=== PATIENT | male | born 1995 | race Caucasian/White ===

== ENCOUNTER 2018-05-28 14:22 | Emergency (ER) | payer OTHER, SELFPAY ==
[2018-05-28 14:30] VITALS: BP 143/87; PULSE 80; RESP 16; TEMP 36.4; O2SAT 93
--- NOTE | 2018-05-28 14:38 | DI.RAD.S_ITS ---
PROCEDURE: XR FOOT LT MIN 3V INDICATIONS: foot injury TECHNIQUE: 3 views of the foot were acquired. COMPARISON: None. FINDINGS: Bones: There is a longitudinal lucency in the first distal phalanx, suspicious for nondisplaced fracture. The lucency appears to extend to the first interphalangeal joint. No suspicious bony lesions. Soft tissues: No tibiotalar joint effusion. Achilles tendon appears normal. Soft tissue swelling is noted. IMPRESSION: Nondisplaced fracture of the first distal phalanx with possible intra-articular involvement. Dictated by: Taryn Hoover M.D. on 05/28/2018 at 15:01 Approved by: Taryn Hoover M.D. on 05/28/2018 at 15:05
--- NOTE | 2018-05-28 15:18 | PC.NURSE ---
Dressing in place with gauze and coban to great toe from Clinic on [facility]. Bleedin controlled. States left great toe feels numb. CMS intacy and foot is warm with normal pulses.
--- NOTE | 2018-05-28 15:40 | ED.LOWEXIN ---
HPI - Extremity Injury (Lower) General Chief Complaint: Extremity Injury, Lower Stated Complaint: BUCKET CRUSHED LEFT FOOT, CANT FEEL TOES Time Seen by Provider: 05/28/18 15:28 Source: patient Mode of arrival: ambulatory Limitations: no limitations History of Present Illness HPI Narrative: Otherwise healthy 22-year-old male here for evaluation of a crush injury to his left foot. Patient was sent here after a excavator bucket hit his left foot earlier today while he was at work. Had pain immediately afterwards. States that since then he has had numbness and tingling to his foot. Also pain about his big toe. Has not tried anything for prior to arrival. No prior injury. Related Data Previous Rx's Medication Instructions Recorded cephalexin [Keflex] 500 mg PO Q12H 7 Days #14 cap 05/28/18 hydrocodone-acetaminophen [[place]] 1 tab PO Q4-6H PRN #10 tab 05/28/18 Allergies Allergy/AdvReac Type Severity Reaction Status Date / Time meperidine [From Demerol] Allergy Mild Hives Verified 05/28/18 14:37 Review of Systems Constitutional Denies fever(s) Cardiovascular Denies chest pain and Denies dyspnea Respiratory Denies dyspnea Gastrointestinal Gastrointestinal: Denies abdominal pain, Denies nausea and Denies vomiting Musculoskeletal Comments: Left foot numbness and tingling and pain to his back to Integumentary/Breasts Comments: Bleeding around his big toe no other breaks in the skin Neurologic Comments: Numbness and tingling to left foot PFSH Medical History Mitochondrial ataxia syndrome (Acute) Surgical History No pertinent past surgical history (Acute) Social History Smoking Status: Current every day smoker Exam Initial Vital Signs Initial Vital Signs: Vital Signs Temperature 97.6 F 05/28/18 14:30 Pulse Rate 80 05/28/18 14:30 Respiratory Rate 16 05/28/18 14:30 Blood Pressure 143/87 H 05/28/18 14:30 Pulse Oximetry 93 05/28/18 14:30 Const General: cooperative, healthy appearing, comfortable, well developed, well groomed and No acute distress Orientation: alert, awake and oriented x3 Resp Effort & Inspection: normal respiratory effort Cardio Pulses: dorsalis pedis present on the left Skin Other: Some dry blood around the left big toe nail otherwise no other breaks in the skin. Neuro Other: Patient reports decrease tenderness and tingling to his entire left foot Extrem General: capillary refill normal Other: No gross deformities. Tender around the left toe. Hand appears to have had a subungual hematoma of his left big toenail that has drained. Psych Appearance: grossly normal and well kempt Procedures Laceration Repair Laceration 1: Site: lower extremity Side (If applicable): left Size (cm): 0.25 Description: linear Depth: simple, single layer Local Anesthetic: lidocaine 1% Amount of anesthesia used (mL): 6 Pre-repair: irrigated extensively Skin layer closed with: other (Chromic) Size (cm): 5-0 Number of sutures: 1 Technique: simple, interrupted Course Orders Ordered: ED Orders 05/28/18 14:38 XR foot LT min 3V Stat Vital Signs - 8 hr 05/28/18 14:30 Temperature 97.6 F Pulse Rate 80 Respiratory Rate 16 Blood Pressure 143/87 H Pulse Oximetry 93 MDM - Extremity Injury (Lower) Imaging Data X-ray foot: Radiologist's impression: [place] [address] XRay Report Signed Patient: Eva Mejia#: [id number] : 1995Acct:[id number] Age/Sex: 22 / MDate of Service: 05/28/18 Loc: ED Accession Number: [id number] Procedure: XR foot LT min 3V Ordering Provider: Honorio Perry PROCEDURE: XR FOOT LT MIN 3V INDICATIONS: foot injury TECHNIQUE: 3 views of the foot were acquired. COMPARISON: None. FINDINGS: Bones: There is a longitudinal lucency in the first distal phalanx, suspicious for nondisplaced fracture. The lucency appears to extend to the first interphalangeal joint. No suspicious bony lesions. Soft tissues: No tibiotalar joint effusion. Achilles tendon appears normal. Soft tissue swelling is noted. IMPRESSION: Nondisplaced fracture of the first distal phalanx with possible intra-articular involvement. Dictated by: Taryn Hoover M.D. on 05/28/2018 at 15:01 Approved by: Taryn Hoover M.D. on 05/28/2018 at 15:05 [facility] Narrative Medical decision making narrative: Patient has subjective tingling to his left foot but no signs of compartment syndrome. No breaks in the skin. Secondary to the distal left big toe fracture and the appearance of will probably was a subungual hematoma that has drained the left big toenail was removed and there was a very small laceration to the nail bed. This was repaired with chromic after providing a digit block with lidocaine. Will send home with antibiotics secondary to the cut and the nail bed and the underlying fracture. I have low suspicion for neurologic injury. Patient was given care instructions. He was sent home with a hard sole shoe. He was given return precautions. He expressed understanding and agreement plan. Discharge Plan Departure Patient Disposition: Home Clinical Impression: Fracture of toe of right foot Discharge Date/Time: 05/28/18 16:52 Interventions: ED Discharge Assessment Last Done: 05/28/18 16:52 Instructions: DI for Toe Fracture Activity Restrictions/Additional Instructions: The stitch that was placed in your toe is absorbable and will come out on its own. Recommend that you leave the bandage on for the next 24 hr. After that you can take it off. You can shower like normal. Use soap and water like normal. Do not soak your foot in anything. Take the medications and the antibiotics as directed. Call your primary care doctor for a follow-up. Return to the emergency department for any new or worsening symptoms. Prescriptions: New hydrocodone-acetaminophen [[place]] 5-325 mg tablet 1 tab PO Q4-6H PRN (Reason: pain) Qty: 10 RF: 0 cephalexin [Keflex] 500 mg capsule 500 mg PO Q12H 7 Days Qty: 14 RF: 0
[2018-05-28 16:52] VITALS: BP 122/76; PULSE 72; RESP 18; O2SAT 100
== END 2018-05-28 16:52 | disposition home or self-care (01) ==
PROVIDERS: Emergency Provider Emergency Medicine; PCP Family Medicine
DX: S92.402A Displaced unspecified fracture of left great toe, initial encounter for closed fracture (principal); W22.8XXA Striking against or struck by other objects, initial encounter; Y99.0 Civilian activity done for income or pay
CPT/HCPCS: 12001; 29550; 73630; 99282; 99283

== ENCOUNTER 2018-05-31 14:20 | Emergency (ER) | payer OTHER, SELFPAY ==
[2018-05-31 14:37] VITALS: BP 125/73; PULSE 100; RESP 13; TEMP 36.9; O2SAT 98
--- NOTE | 2018-05-31 18:03 | ED.LOWEXIN ---
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 He was placed in a postop shoe and put on Keflex antibiotics. Laceration to the nail bed was closed and avulsed toenail was placed back into the nail margin. He denies any new trauma to the area. He does report increasing redness over the past couple of days. No fevers. No drainage from the area. Related Data Previous Rx's Medication Instructions Recorded cephalexin [Keflex] 500 mg PO Q12H 7 Days #14 cap 05/28/18 hydrocodone-acetaminophen [[place]] 1 tab PO Q4-6H PRN #10 tab 05/28/18 sulfamethoxazole-trimethoprim 1 tab PO BID 7 Days #14 tab 05/31/18 Allergies Allergy/AdvReac Type Severity Reaction Status Date / Time meperidine [From Demerol] Allergy Mild Hives Verified 05/28/18 14:37 Review of Systems <ROXY Araujo - Last Filed: 05/31/18 22:27> Constitutional Denies chills, Denies fever(s), Denies lethargy and Denies weakness Eyes Denies change in vision, Denies eye discharge, Denies irritation and Denies loss of vision ENT Ears, Nose, Mouth, and Throat: Denies change in voice, Denies neck pain and Denies sore throat Cardiovascular Denies chest pain, Denies irregular heart rhythm, Denies lightheadedness, Denies palpitations, Denies dyspnea, Denies dyspnea on exertion and Denies orthopnea Respiratory Denies cough, Denies dyspnea, Denies dyspnea on exertion and Denies wheezing Gastrointestinal Gastrointestinal: Denies abdominal pain, Denies change in bowel habits, Denies diarrhea, Denies nausea and Denies vomiting Genitourinary Denies hematuria, Denies flank pain, Denies urinary incontinence and Denies urinary urgency Musculoskeletal Denies neck pain Comments: Right great toe pain and redness Integumentary/Breasts Denies pruritus, Denies erythema, Denies rash and Denies wounds Neurologic Denies loss of vision and Denies weakness Endocrine Denies palpitations Hematologic/Lymphatic Denies easy bruising Allergic/Immunologic Denies wheezing Exam <ROXY Araujo - Last Filed: 05/31/18 22:27> Initial Vital Signs Initial Vital Signs: Vital Signs Temperature 98.5 F 05/31/18 14:37 Pulse Rate 100 H 05/31/18 14:37 Respiratory Rate 13 05/31/18 14:37 Blood Pressure 125/73 H 05/31/18 14:37 Pulse Oximetry 98 05/31/18 14:37 Const General: cooperative and well developed Nutritional Appearance: well nourished Orientation: alert, awake, oriented x3 and not confused HENMT Mouth: oral mucosae normal and moist mucous membranes Eyes General: appearance normal, both eyes and all related structures Conjunctivae: conjunctivae normal Sclera: sclerae normal Pupils: PERRL EOM: EOM intact bilaterally Resp Effort & Inspection: normal respiratory effort, able to speak in complete sentences, no respiratory distress and no use of accessory muscles Auscultation: clear to auscultation bilaterally, no rales, no rhonchi and no wheezes Cardio Rate: regular rate Rhythm: regular rhythm Heart Sounds: no click, no gallops, no murmurs and no rubs Pulses: normal peripheral pulses Skin General: no rashes or lesions noted, No jaundice and No petechiae Neuro General: alert, oriented x3, gait normal and no focal motor deficits Speech: speech normal Extrem Other: Right great toe with swelling and erythema. No fluctuance or induration. No open lesions seen. Distal sensation is intact. Distal cap refill less than 2 sec. <Chris Fagan DO - Last Filed: 06/01/18 01:46> Initial Vital Signs Initial Vital Signs: Vital Signs Temperature 98.5 F 05/31/18 14:37 Pulse Rate 100 H 05/31/18 14:37 Respiratory Rate 13 05/31/18 14:37 Blood Pressure 125/73 H 05/31/18 14:37 Pulse Oximetry 98 05/31/18 14:37 Course <ROXY Araujo - Last Filed: 05/31/18 22:27> Vital Signs - 8 hr 05/31/18 19:11 Pulse Rate 86 Respiratory Rate 16 Blood Pressure [Left Arm] 122/70 H Pulse Oximetry 100 <Chris Fagan DO - Last Filed: 06/01/18 01:46> Vital Signs - 8 hr 05/31/18 19:11 Pulse Rate 86 Respiratory Rate 16 Blood Pressure [Left Arm] 122/70 H Pulse Oximetry 100 MDM - Extremity Injury (Lower) <ROXY Araujo - Last Filed: 05/31/18 22:27> [facility] Narrative Medical decision making narrative: Two 2 subjective report of increased redness to the right great toe, will add Septra antibiotic to cover for MRSA. He is instructed follow up with primary care provider in the next couple of days for re-evaluation. Continue using ibuprofen for discomfort. Elevate foot to help with any swelling. Continue to wear the postop shoe. For any worsening symptoms return to the emergency room. Discharge Plan Departure Patient Disposition: Home Clinical Impression: Fracture of toe of right foot Discharge Date/Time: 05/31/18 19:27 Interventions: ED Discharge Assessment Last Done: 05/31/18 19:26 Instructions: DI for Toe Fracture Activity Restrictions/Additional Instructions: Due to worsening redness you have been prescribed a 2nd antibiotic use as directed. Continue taking Keflex and other medications as directed. Use [id number] ibuprofen as needed for any discomfort. Elevation of the right foot to help with swelling. Follow up with her primary care provider in the next couple of days for re-evaluation. For any worsening symptoms return to the emergency room. [id number] probiotics may be used to help with side effects of the antibiotics. Prescriptions: New sulfamethoxazole-trimethoprim 800-160 mg tablet 1 tab PO BID 7 Days Qty: 14 RF: 0 No Action hydrocodone-acetaminophen [[place]] 5-325 mg tablet 1 tab PO Q4-6H PRN (Reason: pain) Qty: 10 RF: 0 cephalexin [Keflex] 500 mg capsule 500 mg PO Q12H 7 Days Qty: 14 RF: 0 Referrals: Ina Guadarrama MD [Primary Care Provider] - <Chris Fagan DO - Last Filed: 06/01/18 01:46> Cosign ED Attending Cosignature Attestation: I was immediately available in the department for consultation. Documentation has been reviewed. I agree with assessment and plan.
[2018-05-31 19:11] VITALS: BP 122/70; PULSE 86; RESP 16; O2SAT 100
--- NOTE | 2018-05-31 19:12 | ED_ITS ---
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 He was placed in a postop shoe and put on Keflex antibiotics. Laceration to the nail bed was closed and avulsed toenail was placed back into the nail margin. He denies any new trauma to the area. He does report increasing redness over the past couple of days. No fevers. No drainage from the area. Related Data Previous Rx's Medication Instructions Recorded cephalexin [Keflex] 500 mg PO Q12H 7 Days #14 cap 05/28/18 hydrocodone-acetaminophen [[place]] 1 tab PO Q4-6H PRN #10 tab 05/28/18 sulfamethoxazole-trimethoprim 1 tab PO BID 7 Days #14 tab 05/31/18 Allergies Allergy/AdvReac Type Severity Reaction Status Date / Time meperidine [From Demerol] Allergy Mild Hives Verified 05/28/18 14:37 Review of Systems <ROXY Araujo - Last Filed: 05/31/18 22:27> Constitutional Denies chills, Denies fever(s), Denies lethargy and Denies weakness Eyes Denies change in vision, Denies eye discharge, Denies irritation and Denies loss of vision ENT Ears, Nose, Mouth, and Throat: Denies change in voice, Denies neck pain and Denies sore throat Cardiovascular Denies chest pain, Denies irregular heart rhythm, Denies lightheadedness, Denies palpitations, Denies dyspnea, Denies dyspnea on exertion and Denies orthopnea Respiratory Denies cough, Denies dyspnea, Denies dyspnea on exertion and Denies wheezing Gastrointestinal Gastrointestinal: Denies abdominal pain, Denies change in bowel habits, Denies diarrhea, Denies nausea and Denies vomiting Genitourinary Denies hematuria, Denies flank pain, Denies urinary incontinence and Denies urinary urgency Musculoskeletal Denies neck pain Comments: Right great toe pain and redness Integumentary/Breasts Denies pruritus, Denies erythema, Denies rash and Denies wounds Neurologic Denies loss of vision and Denies weakness Endocrine Denies palpitations Hematologic/Lymphatic Denies easy bruising Allergic/Immunologic Denies wheezing Exam <ROXY Araujo - Last Filed: 05/31/18 22:27> Initial Vital Signs Initial Vital Signs: Vital Signs Temperature 98.5 F 05/31/18 14:37 Pulse Rate 100 H 05/31/18 14:37 Respiratory Rate 13 05/31/18 14:37 Blood Pressure 125/73 H 05/31/18 14:37 Pulse Oximetry 98 05/31/18 14:37 Const General: cooperative and well developed Nutritional Appearance: well nourished Orientation: alert, awake, oriented x3 and not confused HENMT Mouth: oral mucosae normal and moist mucous membranes Eyes General: appearance normal, both eyes and all related structures Conjunctivae: conjunctivae normal Sclera: sclerae normal Pupils: PERRL EOM: EOM intact bilaterally Resp Effort & Inspection: normal respiratory effort, able to speak in complete sentences, no respiratory distress and no use of accessory muscles Auscultation: clear to auscultation bilaterally, no rales, no rhonchi and no wheezes Cardio Rate: regular rate Rhythm: regular rhythm Heart Sounds: no click, no gallops, no murmurs and no rubs Pulses: normal peripheral pulses Skin General: no rashes or lesions noted, No jaundice and No petechiae Neuro General: alert, oriented x3, gait normal and no focal motor deficits Speech: speech normal Extrem Other: Right great toe with swelling and erythema. No fluctuance or induration. No open lesions seen. Distal sensation is intact. Distal cap refill less than 2 sec. <Chris Fagan DO - Last Filed: 06/01/18 01:46> Initial Vital Signs Initial Vital Signs: Vital Signs Temperature 98.5 F 05/31/18 14:37 Pulse Rate 100 H 05/31/18 14:37 Respiratory Rate 13 05/31/18 14:37 Blood Pressure 125/73 H 05/31/18 14:37 Pulse Oximetry 98 05/31/18 14:37 Course <ROXY Araujo - Last Filed: 05/31/18 22:27> Vital Signs - 8 hr 05/31/18 19:11 Pulse Rate 86 Respiratory Rate 16 Blood Pressure [Left Arm] 122/70 H Pulse Oximetry 100 <Chris Fagan DO - Last Filed: 06/01/18 01:46> Vital Signs - 8 hr 05/31/18 19:11 Pulse Rate 86 Respiratory Rate 16 Blood Pressure [Left Arm] 122/70 H Pulse Oximetry 100 MDM - Extremity Injury (Lower) <ROXY Araujo - Last Filed: 05/31/18 22:27> [facility] Narrative Medical decision making narrative: Two 2 subjective report of increased redness to the right great toe, will add Septra antibiotic to cover for MRSA. He is instructed follow up with primary care provider in the next couple of days for re-evaluation. Continue using ibuprofen for discomfort. Elevate foot to help with any swelling. Continue to wear the postop shoe. For any worsening symptoms return to the emergency room. Discharge Plan Departure Patient Disposition: Home Clinical Impression: Fracture of toe of right foot Discharge Date/Time: 05/31/18 19:27 Interventions: ED Discharge Assessment Last Done: 05/31/18 19:26 Instructions: DI for Toe Fracture Activity Restrictions/Additional Instructions: Due to worsening redness you have been prescribed a 2nd antibiotic use as directed. Continue taking Keflex and other medications as directed. Use over- the-counter ibuprofen as needed for any discomfort. Elevation of the right foot to help with swelling. Follow up with her primary care provider in the next couple of days for re-evaluation. For any worsening symptoms return to the emergency room. [id number] probiotics may be used to help with side effects of the antibiotics. Prescriptions: New sulfamethoxazole-trimethoprim 800-160 mg tablet 1 tab PO BID 7 Days Qty: 14 RF: 0 No Action hydrocodone-acetaminophen [[place]] 5-325 mg tablet 1 tab PO Q4-6H PRN (Reason: pain) Qty: 10 RF: 0 cephalexin [Keflex] 500 mg capsule 500 mg PO Q12H 7 Days Qty: 14 RF: 0 Referrals: Ina Guadarrama MD [Primary Care Provider] - <Chris Fagan DO - Last Filed: 06/01/18 01:46> Cosign ED Attending Cosignature Attestation: I was immediately available in the department for consultation. Documentation has been reviewed. I agree with assessment and plan.
== END 2018-05-31 19:27 | disposition home or self-care (01) ==
PROVIDERS: Emergency Provider Nurse Practitioner Family; PCP Family Medicine
DX: S92.911D Unspecified fracture of right toe(s), subsequent encounter for fracture with routine healing (principal); W23.0XXD Caught, crushed, jammed, or pinched between moving objects, subsequent encounter; Y99.0 Civilian activity done for income or pay
CPT/HCPCS: 99282

== ENCOUNTER 2019-06-03 22:20 | Emergency (ER) | payer MEDICARE, SELFPAY ==
[2019-06-03 22:28] VITALS: BP 136/67; PULSE 80; RESP 18; TEMP 36.5; O2SAT 99; BMI 20.7
[2019-06-03 23:33] VITALS: BP 114/66; PULSE 66; RESP 16; O2SAT 98
--- NOTE | 2019-06-04 00:07 | ED_ITS ---
HPI - Skin/Abscess/Foreign Bdy General Chief complaint: Skin/Abscess/Foreign Body Stated complaint: SKIN INFECTION Time Seen by Provider: 06/04/19 00:07 Source: patient and family (mother) Mode of arrival: ambulatory Limitations: no limitations History of Present Illness HPI narrative: 23-year-old male comes to the emergency department with complaint of skin infection on his left leg. He states he was started on antibiotics a week ago. He was started on sulfamethoxazole trimethoprim. He states that has not really gotten bear but has not got any better. He states that he has been keeping the area clean. He denies any fevers or chills, no chest pain, no shortness of breath, no nausea or vomiting other GI or urinary symptoms. He has had a little bit of pain leg low bit of swelling. He has an appreciate any new redness spreading throughout the leg. He was seen at [facility] where he got the medication. He followed up on [facility] where he lives and was referred here. Related Data Previous Rx's Medication Instructions Recorded hydrocodone-acetaminophen [Hammond] 1 tab PO Q4-6H PRN #10 tab 05/28/18 clindamycin HCl 300 mg PO Q6H #40 cap 06/04/19 Allergies Allergy/AdvReac Type Severity Reaction Status Date / Time meperidine [From Demerol] Allergy Mild Hives Verified 06/03/19 22:28 Review of Systems Review of Systems ROS Unobtainable: All systems reviewed & are unremarkable except as noted in HPI and below PFSH Medical History Mitochondrial ataxia syndrome (Acute) Surgical History No pertinent past surgical history (Acute) Social History Smoking Status: Current every day smoker Social History Smoking Status: Current every day smoker Exam Narrative Exam Narrative: GENERAL: Alert and oriented x three, well-nourished male in no acute distress. Patient has poor hygiene. HEENT: Head normocephalic, atraumatic, EOMI, pupils reactive, face symmetric, moist mucous membranes NECK: Supple, full range of motion CARDIOVASCULAR: Regular rate and rhythm without murmurs, rubs or gallops. RESPIRATORY: Breath sounds equal bilaterally, no wheezes rales or rhonchi. ABDOMEN: Soft, nontender. Normoactive bowel sounds all 4 quadrants. No guarding or rebound, rigidity, no mass : No CVA tenderness EXTREMITIES: Normal range of motion, no clubbing or edema. Neurovascularly intact. Patient's left leg has a 3 cm ulceration with erythema along the head and scabbing in the central portion. There is a small streak of erythema. The area is circled with blue pen which the patient states is from his past visit a week ago. It has extended 0.25 cm beyond the line. Patient has some mild surrounding edema. No extensive erythema surrounding otherwise. 2+ pulses in his lower extremity. With normal sensation throughout. NEUROLOGICAL: Cranial nerves II through XII grossly intact. Moving all extremities SKIN: Warm, dry, no petechiae, no rashes or lesions. Initial Vital Signs Initial Vital Signs: Vital Signs Temperature 97.7 F 06/03/19 22:28 Pulse Rate 80 06/03/19 22:28 Respiratory Rate 18 06/03/19 22:28 Blood Pressure 136/67 06/03/19 22:28 Pulse Oximetry 99 06/03/19 22:28 Course Orders Ordered: Discontinued Medications Clindamycin HCl (Cleocin) 300 mg PO NOW ONE Stop: 06/04/19 00:18 Last Admin: 06/04/19 00:49 Dose: 300 mg Documented by: KALANI Diphtheria/Tetanus/Acell Pertussis (Adacel) 0.5 ml IM .ONCE ONE Stop: 06/04/19 00:30 Last Admin: 06/04/19 00:47 Dose: 0.5 ml Documented by: KALANI Vital Signs Vital signs: Vital Signs - 8 hr 06/03/19 23:33 Pulse Rate 66 Respiratory Rate 16 Blood Pressure [Right Arm] 114/66 Pulse Oximetry 98 MDM - Skin/Abscess/Foreign Bdy MDM Narrative Medical decision making narrative: Discussed with patient and mother the importance of hygiene. 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 We discussed that I am not sure if this would increase his risk of skin infections he has had 1 prior infection of his skin which she attributed to a spider bite. He has not had other issues in the past. He does not recall any trauma other injury to the area. Patient does seem to have a little bit of developmental delay and does have hygiene which is contributing. We discussed and I emphasized keeping it clean. I would like to give a referral to wound care, do not feel the patient has been started on IV antibiotics at this time but we discussed signs and symptoms and reasons to return if he did. Because they live on [facility] they could see a [facility] has moved care services available but no give a referral for her as well. Discharge Plan Departure Patient Disposition: Home Clinical Impression: Wound of left leg Qualifiers: Encounter type: initial encounter Qualified Code(s): S81.802A - Unspecified open wound, left lower leg, initial encounter Discharge Date/Time: 06/04/19 00:57 Instructions: DI for Wound Infection Activity Restrictions/Additional Instructions: Follow up with primary care and/or wound care. Call for an appointment. Take antibiotics until gone. Wound Care: Keep wound(s) clean and dry. Wash daily with soap and water only. Do not use over the counter products (alcohol or peroxide)on the wounds unless instructed by a physician. If wound condition worsens (increased/expanding redness, developing fluid blisters, or worsening pain), either contact your doctor for an urgent re- assessment , or return to the Emergency Department. Return to the Emergency Department for any new or worsening symptoms. Return to the ED, urgent care, or vist a primary care doctor for removal or suture or marco a Return if fever greater than 100.4 Fahrenheit, increased swelling, increasing pain or worsening symptoms such as increased discharge or spreading redness. Use warm compresses 3 times daily for 20 minutes to the affected area. If there is packing in place do not pull it out, if it falls out do not try to replace it. Prescriptions: New clindamycin HCl 300 mg capsule 300 mg PO Q6H Qty: 40 RF: 0 No Action hydrocodone-acetaminophen [Hammond] 5-325 mg tablet 1 tab PO Q4-6H PRN (Reason: pain) Qty: 10 RF: 0 Referrals: Ina Guadarrama MD [Primary Care Provider] -
[2019-06-04] MEDS: TET,DIPH,PERTUSS(ACELL),VAC/PF 0.5 ML SYRINGE IM (00:47)
[2019-06-04] MEDS: CLINDAMYCIN 150 MG CAPSULE 300 MG PO (00:49)
== END 2019-06-04 00:57 | disposition home or self-care (01) ==
PROVIDERS: Emergency Provider Emergency Medicine; PCP Family Medicine
DX: S81.802A Unspecified open wound, left lower leg, initial encounter (principal); Z23 Encounter for immunization
CPT/HCPCS: 90471; 99282; 99283; 90715

== ENCOUNTER 2020-01-05 18:03 | Emergency (ER) | payer MEDICARE, MEDICAID, SELFPAY ==
[2020-01-05 18:05] VITALS: BP 167/83; PULSE 109; RESP 24; TEMP 36.5; O2SAT 97
--- NOTE | 2020-01-05 18:10 | ED_ITS ---
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 He denies any fever chills. His cough is dry and hacking. He is not dizzy nor weak or lightheaded. He denies any runny nose, sneezing or sore throat. He denies any nausea, vomiting or diarrhea. Denies any exertional change or cardiac equivalents such as vomiting, radiation, unexplained diaphoresis MD complaint: chest pain Onset (ago): day(s) Duration: intermittent Pain location: right chest Severity: moderate Quality: sharp Pain radiation: none Relieving factors: rest Exacerbating factors: inspiration, supine, palpation and movement Associated symptoms: cough Treatments prior to arrival chest pain: none Related Data Previous Rx's Medication Instructions Recorded hydrocodone-acetaminophen [Reasnor] 1 tab PO Q4-6H PRN #10 tab 05/28/18 clindamycin HCl 300 mg PO Q6H #40 cap 06/04/19 amoxicillin-pot clavulanate 1 tab PO BID #20 tab 01/05/20 [Augmentin] Allergies Allergy/AdvReac Type Severity Reaction Status Date / Time meperidine [From Demerol] Allergy Mild Hives Verified 06/03/19 22:28 Review of Systems Constitutional Constitutional: Denies chills, Denies fatigue, Denies fever(s), Denies frequent falls, Denies lethargy and Denies weakness Eyes Eyes: Denies change in vision, Denies eye discharge, Denies irritation and Denies loss of vision ENT Ears, Nose, Mouth, and Throat: Denies change in voice, Denies dizziness, Denies neck pain, Denies sore throat and Denies throat swelling Cardiovascular Cardiovascular: Reports chest pain, Denies irregular heart rhythm, Denies lightheadedness, Denies palpitations, Denies dyspnea, Denies dyspnea on exertion and Denies orthopnea Respiratory Respiratory: Reports cough, Reports pain with cough, Denies dyspnea, Denies dyspnea on exertion and Denies wheezing Gastrointestinal Gastrointestinal: Denies abdominal pain, Denies change in bowel habits, Denies diarrhea, Denies nausea and Denies vomiting Genitourinary Genitourinary: Denies hematuria, Denies flank pain, Denies urinary incontinence and Denies urinary urgency Musculoskeletal Musculoskeletal: Denies back pain, Denies muscle weakness, Denies neck pain, Denies numbness and Denies tingling Integumentary/Breasts Skin/Breast: Denies pruritus, Denies erythema, Denies rash and Denies wounds Neurologic Neurologic: Denies behavioral changes, Denies confusion, Denies dizziness, Denies frequent falls, Denies loss of vision, Denies numbness, Denies tingling and Denies weakness Psychiatric Psychiatric: Denies anxiety, Denies behavioral changes, Denies confusion, Denies depression, Denies homicidal ideation and Denies suicidal ideation Endocrine Endocrine: Denies fatigue, Denies flushing and Denies palpitations Hematologic/Lymphatic Hematologic/Lymphatic: Denies easy bruising Allergic/Immunologic Allergic/Immunologic: Denies urticaria, Denies throat swelling and Denies wheezing Patient History Medical History Mitochondrial ataxia syndrome (Acute) Surgical History No pertinent past surgical history (Acute) Social History Smoking Status: Current every day smoker Smoking Status: Current every day smoker alcohol intake frequency: a few times a month Substance Use Type: marijuana Exam Narrative Exam Narrative: GENERAL: [24] year old patient appears stated age. Well- nourished, well-developed patient, in mild distress. HEAD: Atraumatic. Normocephalic. EYES: Pupils equal round and reactive. Extraocular motions intact. No scleral icterus. No injection or drainage. ENT: Nose without bleeding, purulent drainage. Throat without erythema, tonsillar hypertrophy or exudate. Airway patent. NECK: Trachea midline. Non tender CARDIOVASCULAR: Regular rate and rhythm without murmurs, gallops, or rubs. Right-sided lateral ribs tender to palpation RESPIRATORY: Crackles in right base, otherwise within normal limits GASTROINTESTINAL: Abdomen soft, non-tender, nondistended. EXTREMITIES: No edema or joint tenderness. BACK: Nontender without deformity or crepitance. No flank tenderness. NEURO: AOx3. SKIN: No rash or erythema of visible areas Initial Vital Signs Initial Vital Signs: Vital Signs Temperature 97.7 F 01/05/20 18:05 Pulse Rate 109 H 01/05/20 18:05 Respiratory Rate 24 01/05/20 18:05 Blood Pressure 167/83 H 01/05/20 18:05 Pulse Oximetry 97 01/05/20 18:05 Course Orders Ordered: ED Orders 01/05/20 18:15 XR chest 1V Stat 01/05/20 18:42 C-Reactive Protein Quant Stat Complete Blood Count AUTO DIFF Stat Comprehensive Metabolic Panel Stat Ferritin Stat Procalcitonin Stat 01/05/20 19:40 D Dimer Stat 01/05/20 20:16 CT angio chest PE protocol Stat Discontinued Medications Amoxicillin/Clavulanate Potassium (Augmentin 875-125 Mg) 1 tab PO NOW ONE Stop: 01/05/20 20:55 Last Admin: 01/05/20 21:00 Dose: 1 tab Documented by: TIFFANY Sodium Chloride (Normal Saline 0.9%) 1,000 mls @ 1,000 mls/hr IV BOLUS ONE Stop: 01/05/20 19:26 Last Infusion: 01/05/20 20:25 Dose: 0 mls/hr Documented by: Admin: 01/05/20 18:48 Dose: 1,000 mls/hr Documented by: BESSIE Vital Signs Vital signs: Vital Signs - 8 hr 01/05/20 18:05 01/05/20 18:53 01/05/20 19:29 Temperature 97.7 F Pulse Rate 109 H 107 H 99 H Respiratory Rate 24 22 27 H Blood Pressure 167/83 H Blood Pressure [Left Arm] 167/83 H 167/83 H Pulse Oximetry 97 97 99 01/05/20 19:40 01/05/20 20:40 Temperature Pulse Rate 96 H 97 H Respiratory Rate 24 Blood Pressure Blood Pressure [Left Arm] 142/74 H Pulse Oximetry 98 MDM - Chest Pain Lab Data Result diagrams: 01/05/20 18:42 01/05/20 18:42 Labs: Lab Results 01/05/20 01/05/20 01/05/20 Range/Units 18:42 18:42 18:42 WBC 11.3 H (4.5-11.0) X10^3/uL RBC 5.28 (4.5-5.9) X10^6/uL Hgb 15.5 (13.5-17.5) g/dL Hct 45.6 (41-53) % MCV 86.4 (80-100) fL MCH 29.4 (26-34) PG MCHC 34.0 (30-36) % RDW 13.9 (11.6-14.8) % Plt Count 288 (150-400) X10^3/uL Neut % (Auto) 74.0 (50-75) % Lymph % (Auto) 12.1 L (25-40) % Valley % (Auto) 13.1 (3-14) % Eos % (Auto) 0.5 L (2-4) % Baso % (Auto) 0.3 (0-2) % Neut # (Auto) 8400 H (3315-0250) /uL Lymph # (Auto) 1400 (6707-1782) /uL Valley # (Auto) 1500 H (0-900) /uL Eos # (Auto) 100 (0-450) /uL Baso # (Auto) 0 (0-100) /uL D-Dimer (<230) ng/mL Sodium 136 L (137-145) mmol/L Potassium 4.3 (3.4-5.1) mmol/L Chloride 102 (98-107) mmol/L Carbon Dioxide 25 (22-32) mmol/L BUN 15 (9-20) mg/dL Creatinine 0.80 (0.66-1.25) mg/dL Estimated GFR > 60.0 (>60) mL/min BUN/Creatinine Ratio 18.8 (6-22) Glucose 120 H (70-100) mg/dL Calcium 9.8 (8.4-10.2) mg/dL Ferritin 78 (18-464) ng/mL Total Bilirubin 0.5 (0.2-1.3) mg/dL AST 32 (17-59) IU/L ALT 39 (<50) IU/L Alkaline Phosphatase 62 (38-126) U/L C-Reactive Protein 15.1 H (<1.0) mg/dL Total Protein 8.7 H (6.3-8.2) g/dL Albumin 4.9 (3.5-5.0) g/dL Globulin 3.8 (1.7-4.1) g/dL Albumin/Globulin Ratio 1.3 (1.0-2.8) Procalcitonin < 0.05 (<0.5) ng/mL 01/05/20 Range/Units 19:40 WBC (4.5-11.0) X10^3/uL RBC (4.5-5.9) X10^6/uL Hgb (13.5-17.5) g/dL Hct (41-53) % MCV (80-100) fL MCH (26-34) PG MCHC (30-36) % RDW (11.6-14.8) % Plt Count (150-400) X10^3/uL Neut % (Auto) (50-75) % Lymph % (Auto) (25-40) % Valley % (Auto) (3-14) % Eos % (Auto) (2-4) % Baso % (Auto) (0-2) % Neut # (Auto) (5920-4415) /uL Lymph # (Auto) (8369-0927) /uL Valley # (Auto) (0-900) /uL Eos # (Auto) (0-450) /uL Baso # (Auto) (0-100) /uL D-Dimer 612 H (<230) ng/mL Sodium (137-145) mmol/L Potassium (3.4-5.1) mmol/L Chloride (98-107) mmol/L Carbon Dioxide (22-32) mmol/L BUN (9-20) mg/dL Creatinine (0.66-1.25) mg/dL Estimated GFR (>60) mL/min BUN/Creatinine Ratio (6-22) Glucose (70-100) mg/dL Calcium (8.4-10.2) mg/dL Ferritin (18-464) ng/mL Total Bilirubin (0.2-1.3) mg/dL AST (17-59) IU/L ALT (<50) IU/L Alkaline Phosphatase (38-126) U/L C-Reactive Protein (<1.0) mg/dL Total Protein (6.3-8.2) g/dL Albumin (3.5-5.0) g/dL Globulin (1.7-4.1) g/dL Albumin/Globulin Ratio (1.0-2.8) Procalcitonin (<0.5) ng/mL Imaging Data Chest x-ray: Radiologist's Impression: [address] [address] XRay Report Signed Patient: Eva Mejia#: [id number] : 1995Acct:[id number] Age/Sex: 24 / MDate of Service: 01/05/20 Loc: ED Accession Number: [id number] Procedure: XR chest 1V Ordering Provider: Chris Fagan D.O. PROCEDURE: XR CHEST 1V INDICATIONS: cough/pain TECHNIQUE: One view of the chest was acquired. COMPARISON: None. FINDINGS: Surgical changes and devices: None. Lungs and pleura: Streaky opacity at the right lung base. No pleural effusions or pneumothorax. Mediastinum: Mediastinal contours appear normal. Heart size is normal. Bones and chest wall: No suspicious bony lesions. Overlying soft tissues appear unremarkable. IMPRESSION: Mild streaky opacity at the right lung base. Primary diagnostic considerations include atelectasis, aspiration, or pneumonia. Dictated by: Maverick Brown M.D. on 01/05/2020 at 18:33 CT scan - chest: Radiologist's Impression: Shad Mejia 24 M [address] [address] [address] Scan Report Signed Patient: Eva Mejia#: [id number] : 1995Acct:[id number] Age/Sex: 24 / MDate of Service: 01/05/20 Loc: ED Accession Number: [id number] Procedure: CT angio chest PE protocol Ordering Provider: Chris Fagan D.O. PROCEDURE: CT ANGIO CHEST PE PROTOCOL INDICATIONS: CP, SOB, dry cough, hypoxia, elevated DDimer TECHNIQUE: After the administration of intravenous contrast, 2 mm thick sections acquired from the pulmonary apices to the posterior costophrenic angles. 3-dimensional maximum intensity projection (MIP) coronal and sagittal reformats were then acquired through the thorax. For radiation dose reduction, the following was used: automated exposure control, adjustment of mA and/or kV according to patient size. [facility], 18:20. FINDINGS: Image quality: There is suboptimal timing of contrast bolus limiting evaluation of the pulmonary arteries. The pulmonary arteries were adequately visualized to level of the distal segmental pulmonary arteries.. Pulmonary arteries: Pulmonary arteries are normal in size, and demonstrate no intraluminal filling defects to suggest central pulmonary embolism. Lungs and pleura: No pneumothorax. Small right perfusion. Scattered patchy co nsolidation involving the right lower lobe, right middle lobe, and inferior aspect of the right upper lobe. Patchy consolidation of the posterior lingula and left lower lobe. Mild bilateral airway thickening more pronounced in the lower lobes. Central and peripheral airways are patent. Mediastinum: Heart size is normal, without pericardial effusion. No mediastinal or hilar adenopathy. Anterior mediastinal soft tissue density compatible with residual thymic tissue. Thoracic aorta is normal in caliber and enhancement. Esophagus is normal in caliber, without hiatal hernia. Bones and chest wall: No suspicious bony lesions. Ribs and thoracic spine appear intact throughout. Thyroid gland is unremarkable. No axillary or supraclavicular adenopathy. Abdomen: Visualized upper abdominal solid organs appear normal in the early arterial phase of enhancement. IMPRESSION: 1. No acute pulmonary emboli identified to the level of the distal segmental pulmonary arteries. 2. Multiple scattered patchy consolidations involving the right upper, middle, and lower lobes as well as the posterior left lingula and left lower lobe. Findings likely represent multifocal pneumonia with small right parapneumonic effusion. Recommend followup imaging 4-6 weeks after treatment to document resolution of findings. 3. Small amount of anterior mediastinal soft tissue density consistent with residual thymic tissue. Dictated by: Jun Levin M.D. on 01/05/2020 at 20:40 Approved by: Jun Levin M.D. on 01/05/2020 at 20:50 MDM Narrative Medical decision making narrative: Multiple etiologies considered including multifocal community-acquired pneumonia given shortness of breath, pleuritic type chest pain and cough. He does have a slight elevation in his white blood cell count, but has no fever and a normal procalcitonin. Patient did have an elevated D-dimer and CT angiogram for PE ordered given pleuritic type chest pain, shortness of breath, cough and tachycardia. There was no PE noted but multifocal, multi lobar pneumonia was noted. COVID-19 considered highly likely given decreased lymphocytes, elevated CRP, elevated D-dimer, normal procalcitonin and widespread infiltrates on CT. Patient and family given extensive bedside discussion regarding this possible diagnosis and return precautions. They have had questions answered to their apparent satisfaction Discharge Plan Departure Patient Disposition: Home Clinical Impression: Community acquired pneumonia Qualifiers: Laterality: right Lung location: lower lobe of lung Qualified Code(s): J18.9 - Pneumonia, unspecified organism Instructions: DI for Pneumonia -- Adult Activity Restrictions/Additional Instructions: *You have been diagnosed with [acute community-acquired pneumonia] *What to do: *Take medications as directed *Follow up with your primary care provider in 2-3 days, call for an appointment. Let them know you were seen in the Emergency Department and that we ask that you be seen in follow up *Return to ER if you should have any new, worsening or concerning symptoms *You have been diagnosed with [ pneumonia and given antibiotics. You were swabbed for Coronavirus and results will come back in a few days. Some of your labs are abnormal in ways that are consistent with coronavirus infection ] *What to do: * per recommendations from the CDC and the [facility] Department of Health * stay home except to get medical care. Restrict activities outside your home, except for getting medical care. Do not go to work, school, or public areas. Avoid using public transportation, ride sharing, or taxis. * separate yourself from other people in your home. * call ahead before visiting your doctor * Wear a facemask * Cover your coughs and sneezes * Clean your hands often * Avoid sharing household items * Clean all high-touch services every day * Monitor your symptoms and seek prompt medical attention if your illness is worsening, particularly with difficulty in breathing. Discussed continuing home isolation * for individuals with symptoms who are confirmed or suspected cases of COVID-19 and are directed to care for themselves at home, discontinue home isolation under the following conditions: 1. At least 72 hours have passed since recovery, defined as resolution of fever without the use of fever reducing medications, and improvement in respiratory symptoms (cough, shortness of breath) AND, 2. At least 7 days have passed since symptoms 1st appeared Individuals with laboratory confirmed COVID-19 who have not had any symptoms may discontinue home isolation when at least 7 days have passed since the date of their 1st COVID-19 diagnostic test and have had no subsequent illness Prescriptions: New amoxicillin-pot clavulanate [Augmentin] 875-125 mg tablet 1 tab PO BID Qty: 20 RF: 0 No Action hydrocodone-acetaminophen [Reasnor] 5-325 mg tablet 1 tab PO Q4-6H PRN (Reason: pain) Qty: 10 RF: 0 clindamycin HCl 300 mg capsule 300 mg PO Q6H Qty: 40 RF: 0 Referrals: Ina Guadarrama MD [Primary Care Provider] -
--- NOTE | 2020-01-05 18:15 | DI.RAD.S_ITS ---
PROCEDURE: XR CHEST 1V INDICATIONS: cough/pain TECHNIQUE: One view of the chest was acquired. COMPARISON: None. FINDINGS: Surgical changes and devices: None. Lungs and pleura: Streaky opacity at the right lung base. No pleural effusions or pneumothorax. Mediastinum: Mediastinal contours appear normal. Heart size is normal. Bones and chest wall: No suspicious bony lesions. Overlying soft tissues appear unremarkable. IMPRESSION: Mild streaky opacity at the right lung base. Primary diagnostic considerations include atelectasis, aspiration, or pneumonia. Dictated by: Maverick Brown M.D. on 01/05/2020 at 18:33 Approved by: Maverick Brown M.D. on 01/05/2020 at 18:36
[2020-01-05] MEDS: SODIUM CHLORIDE 0.9% 1,000 ML 1000 ML IV (18:48)
[2020-01-05 18:51] LABS: Add Manual Diff / Slide Review NO; Basophils Absolute Auto 0 /uL (0-100); Basophils Percent Auto 0.3 % (0-2); Eosinophils Absolute Auto 100 /uL (0-450); Eosinophils Percent Auto 0.5 % (2-4); Hematocrit 45.6 % (41-53); Hemoglobin 15.5 g/dL (13.5-17.5); Lymphocytes Absolute Auto 1400 /uL (1100-4500); Lymphocytes Percent Auto 12.1 % (25-40); Mean Corpuscular Hemoglobin 29.4 PG (26-34); Mean Corpuscular Volume 86.4 fL (80-100); Monocytes Absolute Auto 1500 /uL (0-900); Monocytes Percent Auto 13.1 % (3-14); Neutrophils Absolute Auto 8400 /uL (1500-7000); Platelet Count 288 X10^3/uL (150-400); Red Blood Cell Count 5.28 X10^6/uL (4.5-5.9); Red Cell Distribution Width 13.9 % (11.6-14.8); White Blood Cell Count 11.3 X10^3/uL (4.5-11.0)
[2020-01-05 18:53] VITALS: BP 167/83; PULSE 107; RESP 22; O2SAT 97
[2020-01-05 19:08] LABS: Alanine Aminotransferase 39 IU/L (<50); Albumin 4.9 g/dL (3.5-5.0); Albumin Globulin Ratio 1.3 (1.0-2.8); Alkaline Phosphatase 62 U/L (38-126); Aspartate Aminotransferase 32 IU/L (17-59); BUN Creatinine Ratio 18.8 (6-22); Bilirubin Total 0.5 mg/dL (0.2-1.3); Blood Urea Nitrogen 15 mg/dL (9-20); Calcium 9.8 mg/dL (8.4-10.2); Carbon Dioxide 25 mmol/L (22-32); Chloride 102 mmol/L (98-107); Estimated Glomerular Filt Rate > 60.0 mL/min (>60); Globulin 3.8 g/dL (1.7-4.1); Glucose 120 mg/dL (70-100); HEMOLYSIS 23 (0-50); Potassium 4.3 mmol/L (3.4-5.1); Sodium 136 mmol/L (137-145); Total Protein 8.7 g/dL (6.3-8.2)
[2020-01-05 19:18] LABS: C-Reactive Protein Quant 15.1 mg/dL (<1.0)
[2020-01-05 19:25] LABS: Procalcitonin < 0.05 ng/mL (<0.5)
[2020-01-05 19:29] VITALS: BP 167/83; PULSE 99; RESP 27; O2SAT 99
[2020-01-05 19:40] VITALS: PULSE 96
[2020-01-05 19:41] LABS: Ferritin 78 ng/mL (18-464)
[2020-01-05 19:59] LABS: D Dimer 612 ng/mL (<230)
--- NOTE | 2020-01-05 20:16 | DI.CT.S_ITS ---
PROCEDURE: CT ANGIO CHEST PE PROTOCOL INDICATIONS: CP, SOB, dry cough, hypoxia, elevated DDimer TECHNIQUE: After the administration of intravenous contrast, 2 mm thick sections acquired from the pulmonary apices to the posterior costophrenic angles. 3-dimensional maximum intensity projection (MIP) coronal and sagittal reformats were then acquired through the thorax. For radiation dose reduction, the following was used: automated exposure control, adjustment of mA and/or kV according to patient size. COMPARISON: [facility], , XR CHEST 1V, 01/05/2020, 18:20. FINDINGS: Image quality: There is suboptimal timing of contrast bolus limiting evaluation of the pulmonary arteries. The pulmonary arteries were adequately visualized to level of the distal segmental pulmonary arteries.. Pulmonary arteries: Pulmonary arteries are normal in size, and demonstrate no intraluminal filling defects to suggest central pulmonary embolism. Lungs and pleura: No pneumothorax. Small right perfusion. Scattered patchy consolidation involving the right lower lobe, right middle lobe, and inferior aspect of the right upper lobe. Patchy consolidation of the posterior lingula and left lower lobe. Mild bilateral airway thickening more pronounced in the lower lobes. Central and peripheral airways are patent. Mediastinum: Heart size is normal, without pericardial effusion. No mediastinal or hilar adenopathy. Anterior mediastinal soft tissue density compatible with residual thymic tissue. Thoracic aorta is normal in caliber and enhancement. Esophagus is normal in caliber, without hiatal hernia. Bones and chest wall: No suspicious bony lesions. Ribs and thoracic spine appear intact throughout. Thyroid gland is unremarkable. No axillary or supraclavicular adenopathy. Abdomen: Visualized upper abdominal solid organs appear normal in the early arterial phase of enhancement. IMPRESSION: 1. No acute pulmonary emboli identified to the level of the distal segmental pulmonary arteries. 2. Multiple scattered patchy consolidations involving the right upper, middle, and lower lobes as well as the posterior left lingula and left lower lobe. Findings likely represent multifocal pneumonia with small right parapneumonic effusion. Recommend followup imaging 4-6 weeks after treatment to document resolution of findings. 3. Small amount of anterior mediastinal soft tissue density consistent with residual thymic tissue. Dictated by: Jun Levin M.D. on 01/05/2020 at 20:40 Approved by: Jun Levin M.D. on 01/05/2020 at 20:50
[2020-01-05 20:40] VITALS: BP 142/74; PULSE 97; RESP 24; O2SAT 98
[2020-01-05] MEDS: AMOXICILLIN/CLAV 875/125 MG 1 TAB PO (21:00)
[2020-01-05 21:34] VITALS: BP 139/80; PULSE 99; RESP 14; O2SAT 98
[2020-01-07 22:53] LABS: COVID19 Sendout Not Detected (Not Detected)
== END 2020-01-05 21:35 | disposition home or self-care (01) ==
PROVIDERS: Emergency Provider Emergency Medicine; PCP Family Medicine
DX: J18.9 Pneumonia, unspecified organism (principal); R05 Cough; R09.02 Hypoxemia; R79.89 Other specified abnormal findings of blood chemistry
CPT/HCPCS: 36415; 71045; 71275; 80053; 82728; 84145; 85025; 85379; 86140; 87635; 96360; 96361; 99284

== ENCOUNTER → 2021-08-06 12:47 | Outpatient (CLI) | payer MEDICARE, MEDICAID, SELFPAY ==
--- NOTE | 2021-08-06 12:52 | DI.CT.S_ITS ---
PROCEDURE: CT CHEST WO CON INDICATIONS: ABNORMAL CHEST XRAY TECHNIQUE: Noncontrast 5 mm thick sections acquired from the pulmonary apices to the posterior costophrenic angles. 1 mm lung window, 5 mm thick coronal and sagittal and 7 mm axial MIP reformats were then acquired. For radiation dose reduction, the following was used: automated exposure control, adjustment of mA and/or kV according to patient size. COMPARISON: May 06, 2020. FINDINGS: Image quality: Excellent. Lungs and pleura: Diminished aeration of the right lung with slightly increased pleural effusion and adjacent streaky densities, likely reflecting compression atelectasis. The left lung is well aerated without consolidation, pleural effusion, or pneumothorax. A left fissural noted is seen (series 5, image 40). The central and peripheral airways are patent and normal in caliber. Mediastinum: Heart size is normal. No pericardial effusion. No mediastinal adenopathy by size criteria. Thoracic aorta and central pulmonary arteries are normal in size. Esophagus is normal in caliber. No hiatal hernia. Bones and chest wall: No suspicious bony lesions. No vertebral body compression fractures. No axillary or supraclavicular adenopathy by size criteria. Thyroid gland demonstrates homogeneous attenuation. Abdomen: Visualized upper abdominal solid organs and bowel loops appear normal in the absence of contrast. IMPRESSION: 1. Slightly increased right pleural effusion with adjacent streaky densities, likely reflecting compression atelectasis. Dictated by: Jacinto Machado M.D. on 08/06/2021 at 13:08 Approved by: Jacinto Machado M.D. on 08/06/2021 at 13:20
== END ==
PROVIDERS: PCP Family Medicine; Referring Provider Family Medicine; Visit Provider Family Medicine
DX: R93.89 Abnormal findings on diagnostic imaging of other specified body structures (principal); J90 Pleural effusion, not elsewhere classified
CPT/HCPCS: 71250